=== PATIENT | female | born 1960 ===

== ENCOUNTER 2023-08-13 04:43 | Day surgery (SDC) | payer OTHER ==
[2023-08-06 09:04] VITALS: BMI 19.3
[2023-08-13] MEDS ORDERED: KETOROLAC TROMETHAMINE 30 MG/1 ML VIAL ONE (11:46)
[2023-08-13] MEDS ORDERED: ONDANSETRON 4 MG/2 ML VIAL ONE ×2 (11:46→14:38)
[2023-08-13] MEDS ORDERED: MIDAZOLAM HCL 2 MG/2 ML SINGLE DOSE VIAL ONE (11:46)
[2023-08-13] MEDS ORDERED: LIDOCAINE HCL/PF 2% SDV 5ML VIAL ONE (11:46)
[2023-08-13] MEDS ORDERED: DEXAMETHASONE SOD PHOSPHATE 4 MG/1 ML VIAL ONE (11:46)
[2023-08-13] MEDS ORDERED: BUPIVACAINE HCL/PF 0.5% (5MG/ML) 10 ML VIAL ONE ×2 (13:32→14:11)
[2023-08-13] MEDS ORDERED: PROPOFOL 60 ML ONE (13:55)
[2023-08-13] MEDS ORDERED: HYDROmorphone HCl 2 MG/ML VIAL ONE (14:01)
[2023-08-13] MEDS ORDERED: SODIUM CHLORIDE 0.9% P/F 10 ML VIAL IJ ONE (14:04)
[2023-08-13] MEDS ORDERED: LIDOCAINE HCL 1%, 10 MG/ML (20ML VIAL) INF ONE (14:06)
[2023-08-13] MEDS ORDERED: SUGAMMADEX SODIUM 200 MG/2 ML VIAL ONE (14:30)
[2023-08-13] MEDS ORDERED: ACETAMINOPHEN INJECTION 100 ML IVPB ONE (14:32)
[2023-08-13] MEDS ORDERED: ONDANSETRON 4 MG/2 ML VIAL IVPUSH PRN (15:05)
[2023-08-13] MEDS ORDERED: LACTATED RINGERS SOLUTION 1,000 ML IV SCH (15:15)
[2023-08-13 20:17] VITALS: BP 100/56; PULSE 60; RESP 20; TEMP 98
== END 2023-08-13 20:00 | disposition home or self-care (01) ==
LOC: JASUSAT 04:43
PROVIDERS: ATTEND Obstetrics & Gynecology Gynecologic Oncology
PROC: 0UT24ZZ Resection of Bilateral Ovaries, Percutaneous Endoscopic Approach (ICD-10-PCS; 2023-08-13)
PROC: 0UT74ZZ Resection of Bilateral Fallopian Tubes, Percutaneous Endoscopic Approach (ICD-10-PCS; principal; 2023-08-13 13:00)
DX: N83.292 Other ovarian cyst, left side (principal); N83.291 Other ovarian cyst, right side; N83.8 Other noninflammatory disorders of ovary, fallopian tube and broad ligament; Z80.41 Family history of malignant neoplasm of ovary
CPT/HCPCS: 86850; 86900; 86901; 94760